=== PATIENT | male | born 1950 | race African-American/Black ===

== ENCOUNTER 2018-01-28 11:43 | Emergency (ER) | payer MEDICARE, OTHER ==
[~2018-01-28] VITALS: Ht 170.2 cm; Wt 74.8 kg
[2018-01-28 11:59] VITALS: BP 107/66
[2018-01-28] MEDS ORDERED: methylPREDNISolone SOD SUCC 125 MG/2 ML VL IM ONE (13:45)
[2018-01-28] MEDS ORDERED: KETOROLAC TROMETH 60MG/2ML VIAL IM ONE (13:45)
[2018-01-28] MEDS ORDERED: IPRATROPIUM BROM 0.5 MG/2.5ML INH SOL NEB ONE (13:45)
[2018-01-28] MEDS ORDERED: ALBUTEROL SULF 2.5 MG/0.5ML(0.5%) NEB SOLN NEB ONE (13:45)
== END 2018-01-28 14:31 | disposition home or self-care (01) ==
LOC: ER 11:43
DX: J45.901 Unspecified asthma with (acute) exacerbation (principal); M54.5 Low back pain; G89.29 Other chronic pain; E11.9 Type 2 diabetes mellitus without complications; I10 Essential (primary) hypertension; F17.210 Nicotine dependence, cigarettes, uncomplicated; Z86.73 Personal history of transient ischemic attack (TIA), and cerebral infarction without residual deficits
CPT/HCPCS: 71046; 81002; 93005; 94640; 96372; 99283; J1885; J2930; J7611; J7644

== ENCOUNTER 2018-10-04 16:40 | Emergency (ER) | payer OTHER ==
[~2018-10-04] VITALS: Ht 170.2 cm; Wt 73.5 kg
[2018-10-04 16:40] VITALS: BP 137/79
[2018-10-04] MEDS ORDERED: ASPirin 81 mg TAB PO ONE (17:15)
[2018-10-04 17:56] LABS: Basophils # (auto) 0 uL; Basophils % (auto) 0.5 % (0.0-2.0); Eosinophils # (auto) 0.2 uL; Eosinophils % (auto) 2.4 % (0.0-7.0); Hematocrit 39.8 % (41.0-53.0); Hemoglobin 13.2 g/dL (13.5-17.5); Lymphocytes # (auto) 0.7 uL; Lymphocytes % (auto) 7.4 % (10.0-50.0); Mean Corpuscular Hemoglobin 28.9 pg (28.0-32.0); Mean Corpuscular Hgb Conc. 33.2 g/dL (32.0-36.0); Monocytes # (auto) 0.5 uL; Neutrophils # (auto) 7.6 uL; Neutrophils % (auto) 83.7 % (37.0-80.0); Platelet Count (auto) 152 10^3/uL (140-450); Red Blood Cells 4.57 10^6/uL (4.5-5.90); Red Cell Distribution Width 15.6 % (11.8-14.3); White Blood Cell 9.1 10^3/uL (4.4-10.8)
[2018-10-04 18:14] LABS: Albumin 2.8 g/dL (3.4-5.0); Anion Gap 7 (5-15); Blood Urea Nitrogen 12 mg/dL (7-18); Carbon Dioxide 27 mmol/L (21-32); Chloride 106 mmol/L (98-107); Glucose 146 mg/dL (74-106); Magnesium 2.3 mg/dL (1.6-2.6); Potassium 3.3 mmol/L (3.5-5.1); Sodium 140 mmol/L (136-145)
[2018-10-04 18:18] LABS: Alanine Aminotransferase 12 U/L (16-61); Alkaline Phosphatase 70 U/L (45-117); Aspartate Aminotransferase 12 U/L (15-37); BUN/Creatinine Ratio 9.6; Bilirubin, Total 0.8 mg/dL (0.2-1.0); GFR African American 73 mL/min; GFR Non-African American 61 mL/min; Total Protein 6.1 g/dL (6.4-8.2)
[2018-10-04 18:20] LABS: INR 0.95 (0.9-1.15); Partial Thromboplastin Time 26.5 sec (23.64-32.05)
[2018-10-04] MEDS ORDERED: ACETAMINOPHEN 325 MG TAB PO ONE (19:15)
== END 2018-10-04 21:45 | disposition home or self-care (01) ==
LOC: EDBD 16:40 → ER 16:42
DX: R07.89 Other chest pain (principal); F41.9 Anxiety disorder, unspecified; J44.9 Chronic obstructive pulmonary disease, unspecified; E11.9 Type 2 diabetes mellitus without complications; K21.9 Gastro-esophageal reflux disease without esophagitis; I10 Essential (primary) hypertension; F17.210 Nicotine dependence, cigarettes, uncomplicated; Z86.73 Personal history of transient ischemic attack (TIA), and cerebral infarction without residual deficits
CPT/HCPCS: 36415; 71045; 80053; 83735; 83880; 84484; 85025; 85610; 85730; 93005; 94761

== ENCOUNTER 2020-01-09 17:40 | Emergency (ER) | payer OTHER, MEDICARE ==
[~2020-01-09] VITALS: Ht 170.2 cm; Wt 72.6 kg
[2020-01-09 19:31] LABS: Basophils # (auto) 0.1 10 ^3/uL (0-0.2); Eosinophils # (auto) 0.5 10 ^3/uL (0-0.8); Eosinophils % (auto) 5.6 % (0.0-7.0); Hematocrit 46.5 % (41.0-53.0); Hemoglobin 15.6 g/dL (13.5-17.5); Lymphocytes # (auto) 1.8 10 ^3/uL (0.4-5.4); Lymphocytes % (auto) 21.1 % (10.0-50.0); Mean Corpuscular Hemoglobin 29.4 pg (28.0-32.0); Mean Corpuscular Hgb Conc. 33.5 g/dL (32.0-36.0); Mean Corpuscular Volume 87.6 fL (80.0-100.0); Monocytes # (auto) 1.1 10 ^3/uL (0-1.3); Monocytes % (auto) 13.2 % (0.0-12.0); Neutrophils % (auto) 59.1 % (37.0-80.0); Nucleated Red Blood Cells % 0.1 %; Platelet Count (auto) 231 10^3/uL (140-450); Red Cell Distribution Width 14.5 % (11.8-14.3); White Blood Cell 8.5 10^3/uL (4.4-10.8)
[2020-01-09 19:33] VITALS: BP 166/76
[2020-01-09 19:46] LABS: Albumin 3.5 g/dL (3.4-5.0); Calcium 8.6 mg/dL (8.5-10.1); Potassium 3.3 mmol/L (3.5-5.1)
[2020-01-09 19:51] LABS: BUN/Creatinine Ratio 7.4; Bilirubin, Total 0.6 mg/dL (0.2-1.0); Total Protein 7.3 g/dL (6.4-8.2)
[2020-01-09 20:07] LABS: Urine Bacteria FEW /hpf (None Seen); Urine Blood Negative /uL (Negative); Urine Specific Gravity 1.009 (1.001-1.035); Urine WBC 161 /hpf (0 - 3)
[2020-01-09] MEDS ORDERED: POTASSIUM CHL 20 Meq TABLET PO ONE ×2 (20:15)
[2020-01-09] MEDS ORDERED: cefTRIAXone SOD 1,000 MG VL IM ONE (20:15)
[2020-01-09] MEDS ORDERED: LIDOCAINE 2% (LOCAL ANESTH.) PF 5ml SDV ONE (20:19)
== END 2020-01-09 20:40 | disposition home or self-care (01) ==
LOC: ER 17:40
DX: N39.0 Urinary tract infection, site not specified (principal); E87.6 Hypokalemia; K42.9 Umbilical hernia without obstruction or gangrene; I10 Essential (primary) hypertension; E11.9 Type 2 diabetes mellitus without complications; J44.9 Chronic obstructive pulmonary disease, unspecified; F17.210 Nicotine dependence, cigarettes, uncomplicated; Z86.73 Personal history of transient ischemic attack (TIA), and cerebral infarction without residual deficits
CPT/HCPCS: 36415; 74176; 80053; 81001; 83690; 85025; 96372; 99284; J0696; J2001

== ENCOUNTER 2024-09-13 17:00 | Inpatient (IN) | payer OTHER, MEDICARE ==
[~2024-09-13] VITALS: Ht 172.7 cm; Wt 75.7 kg
--- NOTE | 2024-09-13 17:23 | ECG ---
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
[2024-09-13 18:17] LABS: Hematocrit 43.8 % (41.0-53.0); Hemoglobin 15.6 g/dL (13.5-17.5); Mean Corpuscular Hemoglobin 31.3 pg (28.0-32.0); Mean Corpuscular Volume 88.0 fL (80.0-100.0); Nucleated Red Blood Cells % 0.2 %
[2024-09-13 18:31] LABS: Alanine Aminotransferase 12 U/L (7-40); Albumin 4.3 g/dL (3.2-4.8); Alkaline Phosphatase 80 U/L (46-116); Anion Gap 10 (5-15); BUN/Creatinine Ratio 8.1 (10.0-20.0); Bilirubin, Total 0.4 mg/dL (0.2-1.0); Blood Urea Nitrogen 11 mg/dL (9-23); Calcium 9.5 mg/dL (8.7-10.4); Carbon Dioxide 24 mmol/L (20-31); Potassium 4.1 mmol/L (3.5-5.1); Sodium 143 mmol/L (136-145); Total Protein 6.4 g/dL (5.7-8.2)
[2024-09-13 18:33] LABS: Chloride 109 mmol/L (98-107); Glucose 135 mg/dL (74-106)
--- NOTE | 2024-09-13 18:42 | DVH ---
CHEST RADIOGRAPH Indication: GENERAL WEAKNESS, SHORTNESSOF BREATH Technique: Single frontal view of the chest was obtained Comparison: None FINDINGS: Lines and Tubes: None Lungs: No focal consolidation. Pleura: No effusion. No pneumothorax. Cardiomediastinal contours: Unremarkable Bones: No acute osseous abnormality. IMPRESSION: 1. No acute cardiopulmonary disease.
--- NOTE | 2024-09-13 19:48 | ED.PDOC ---
HPI Comments 74-YEAR-OLD MALE BROUGHT IN BY , PATIENT HAS BEEN HAVING GENERALIZED WEAKNESS, STATES OVER THE LAST 2-3 WEEKS HE HAS BEEN HAVING INTERMITTENT SHORTNESS OF BREATH AND DIZZINESS. STATES THAT PATIENT WAS WEARING A H OLTER MONITOR. THEY RECENTLY TOOK IT OFF AND THEY CALLED IN TODAY WITH THE RESULTS AND ADVISED HIM THEN IN HIS COME INTO THE EMERGENCY ROOM FOR VT. STATES THAT PATIENT GETS EPISODES OF DIZZINESS AND WEAKNESS DAILY. PATIENT CURRENTLY DENIES ANY SYMPTOMS, DENIES ANY CHEST PAIN. Chief Complaint: General Weakness Time Seen by MD: 17:23 Reviewed Notes: Nurses Notes Allergies: Coded Allergies: NO KNOWN ALLERGIES (Unverified , 10/04/18) Information Source: Patient Mode of Arrival: Wheelchair Past Medical History PAST MEDICAL HISTORY: Cancer, COPD, CVA, DM, GERD, HTN, Seizures Surgical History: Denies all surgeries Family History Family History: Unknown Social History Smoker: Cigarettes Alcohol: Occasionally Drugs: Denies Drug Use Lives In: Home Constitutional: denies: chills, diaphoresis, fatigue, fever, malaise, sweats, weakness, others EENTM: denies: blurred vision, double vision, ear bleeding, ear discharge, ear drainage, ear pain, ear ringing, eye pain, eye redness, hearing loss, mouth pain, mouth swelling, nasal discharge, nose bleeding, nose congestion, nose pain, photophobia, tearing, throat pain, throat swelling, voice changes, others Respiratory: denies: cough, hemoptysis, orthopnea, SOB at rest, shortness of breath, SOB with excertion, stridor, wheezing, others Cardiovascular: denies: chest pain, dizzy spells, diaphoresis, Dyspnea on exertion, edema, irregular heart beat, left arm pain, lightheadedness, palpitations, PND, syncope, others Gastrointestinal: denies: abdomen distended, abdominal pain, blood streaked bowels, constipated, diarrhea, dysphagia, difficulty swallowing, hematemesis, melena, nausea, poor appetite, poor fluid intake, rectal bleeding, rectal pain, vomiting, others Genitourinary: denies: burning, dysuria, flank pain, frequency, hematuria, incontinence, penile discharge, penile sore, pain, testicle pain, testicle swelling, urgency, others Neurological: denies: dizziness, fainting, headache, left sided numbness, left sided weakness, numbness, paresthesia, pre-existing deficit, right sided numbness, right sided weakness, seizure, speech problems, tingling, tremors, weakness, others Musculoskeletal: denies: back pain, gout, joint pain, joint swelling, muscle pain, muscle stiffness, neck pain, others Integumetry: denies: bruises, change in color, change in hair/nails, dryness, laceration, lesions, lumps, rash, wounds, others Allergic/Immunocompromised: denies: Difficulty Healing, Frequent Infections, Hives, Itching, others Hematologic/Lymphatic: denies: anemia, blood clots, easy bleeding, easy bruising, swollen glands, others Endocrine: denies: excessive hunger, excessive sweating, excessive thirst, excessive urination, flushing, intolerance to cold, intolerance to heat, unexplained weight gain, unexplained weight loss, others Psychiatric: denies: anxiety, bipolar disorder, depression, hopeless, panic disorder, schizophrenia, sleepless, suicidal, others Physical Exam General Appearance: No Apparent Distress, Normal HEENT: Normal ENT Inspection, Pharynx Normal, TMs Normal Neck: Full Range of Motion, Non-Tender, Normal, Normal Inspection Respiratory: Chest Non-Tender, Lungs Clear, No Accessory Muscle Use, No Respiratory Distress, Normal Breath Sounds Cardiovascular: No Edema, No JVD, No Murmur, No Gallop, Normal Peripheral Pulses, Regular Rate/Rhythm Breast Exam: Deferred Gastrointestinal: No Organomegaly, Non Tender, No Pulsatile Mass, Normal Bowel Sounds, Soft Genitalia: Deferred Pelvic: Deferred Rectal: Deferred Extremities: No calf tenderness, Normal capillary refill, Normal inspection, Normal range of motion, Non-tender, No pedal edema Musculoskeletal : Apperance: Normal Neurologic: Alert, Normal Affect, NOT DONE Cerebellar Function: Normal Reflexes: NOT DONE Skin: Dry, Normal Color, Warm Lymphatic: No Adenopathy Was a procedure done? Was a procedure done?: No CP Differential Dx Differential Diagnosis: AV Block 3rd Degree, Ventricular Dysrhythmia, V-Fib, V- Tach X-Ray, Labs, Meds, VS Vital Signs Date Time Temp Pulse Resp B/P (MAP) Pulse Ox O2 Delivery O2 Flow Rate FiO2 09/13/24 17:22 98.7 56 15 128/69 (88) 99 98.7 09/13/24 17:20 100 Lab Test 09/13/24 19:18 7/23/25 17:55 09/13/24 17:15 Range/Units Troponin I High Sensitivity Pending 18 </=54 ng/L White Blood Count 6.4 4.4-10.8 10^3/uL Red Blood Count 4.98 4.5-5.90 10^6/uL Hemoglobin 15.6 13.5-17.5 g/dL Hematocrit 43.8 41.0-53.0 % Mean Corpuscular Volume 88.0 80.0-100.0 fL Mean Corpuscular Hemoglobin 31.3 28.0-32.0 pg Mean Corpuscular Hemoglobin Concent 35.6 32.0-36.0 g/dL Red Cell Distribution Width 13.2 11.8-14.3 % Platelet Count 234 140-450 10^3/uL Mean Platelet Volume 7.9 6.9-10.8 fL Neutrophils (%) (Auto) 52.5 37.0-80.0 % Lymphocytes (%) (Auto) 31.7 10.0-50.0 % Monocytes (%) (Auto) 11.3 0.0-12.0 % Eosinophils (%) (Auto) 3.8 0.0-7.0 % Basophils (%) (Auto) 0.7 0.0-2.0 % Neutrophils # (Auto) 3.4 1.6-8.6 10 ^3/uL Lymphocytes # (Auto) 2.0 0.4-5.4 10 ^3/uL Monocytes # (Auto) 0.7 0-1.3 10 ^3/uL Eosinophils # (Auto) 0.2 0-0.8 10 ^3/uL Basophils # (Auto) 0 0-0.2 10 ^3/uL Nucleated Red Blood Cells 0.2 % Sodium Level 143 136-145 mmol/L Potassium Level 4.1 3.5-5.1 mmol/L Chloride Level 109 H 98-107 mmol/L Carbon Dioxide Level 24 20-31 mmol/L Anion Gap 10 5-15 Blood Urea Nitrogen 11 9-23 mg/dL Creatinine 1.35 H 0.700-1.30 mg/dL Glomerular Filtration Rate Calc 54 >90 mL/min BUN/Creatinine Ratio 8.1 L 10.0-20.0 Serum Glucose 135 H 74-106 mg/dL Calcium Level 9.5 8.7-10.4 mg/dL Total Bilirubin 0.4 0.2-1.0 mg/dL Aspartate Amino Transferase (AST) 13 13-40 U/L Alanine Aminotransferase (ALT) 12 7-40 U/L Alkaline Phosphatase 80 46-116 U/L Total Protein 6.4 5.7-8.2 g/dL Albumin 4.3 3.2-4.8 g/dL POC Glucose 151 H 70-106 mg/dl X-Ray, Labs, Meds, VS Comment PATIENT WILL BE ADMITTED FOR EPISODES OF V-TACH, PATIENT SHOWS PVCS ON EKG, RECOMMEND CARDIOLOGY CONSULT IN THE MORNING PATIENT HAS SYMPTOMATIC HAVING DAILY EPISODES. Time of 1ST Reevaluation: 19:47 Reevaluation 1ST: Unchanged Patient Education/Counseling: Diagnosis, Treatment, Need For Follow Up Family Education/Counseling: Diagnosis, Treatment, No Family Present SEPSIS Sepsis Screen Date sepsis recognized/suspect: Sep 13, 2024 Time Sepsis recognized/suspect: 1721 Recent Procedure: No On Antibiotic Therapy: No Respiratory Rate >20: No Heart Rate >90: No Temp<36 C (96.8 F) or >38.3 C: No SBP <90 or MAP <65 mmHG: No New Acute Mental Status Change: No Is the patient on CPAP, BIPAP,: No Physician Orders Chest Xray 1 View (09/13/24 17:41) Troponin-I Hs (09/13/24 18:41) Troponin-I Hs (09/13/24 20:41) Vital Signs Date Time Temp Pulse Resp B/P (MAP) Pulse Ox O2 Delivery O2 Flow Rate FiO2 09/13/24 17:22 98.7 56 15 128/69 (88) 99 98.7 09/13/24 17:20 100 Laboratory Tests Test 09/13/24 17:55 White Blood Count 6.4 10^3/uL (4.4-10.8) Departure 1 Departure Time of Disposition: 19:46 Impression: Primary Impression: PVCs (premature ventricular contractions) Additional Impression: Generalized weakness Disposition: 09 ADMITTED INPATIENT Condition: Fair Discharged With: Self Critical Care Note Critical Care Time?: No Stability Stability form required: No Heart Score Heart Score: Heart Score Response (Comments) Value History Moderate Suspicious 1 EKG Normal 0 Age >65 2 Risk Factors >3 or Hx ASHD 2 Troponin Normal limit 0 Total 5 LYNN WEBB Sep 13, 2024 19:48
[2024-09-13] MEDS ORDERED: MORPHINE SULFATE INJ 2 MG/ml SYRG IV PRN (21:00)
[2024-09-13] MEDS ORDERED: NITROGLYCERIN 0.4 MG SL TAB SL PRN (21:00)
[2024-09-13] MEDS ORDERED: ACETAMINOPHEN 325 MG TAB PO PRN (21:00)
[2024-09-13] MEDS ORDERED: ONDANSETRON HCL 4 MG/2 ML VIAL IV PRN (21:00)
[2024-09-13 21:57] VITALS: PULSE 70; RESP 14; O2SAT 99
[2024-09-13] MEDS: ATORVASTATIN 20 MG TAB PO SCH (22:46)
[2024-09-13 22:49] VITALS: PULSE 51; RESP 17; O2SAT 100
[2024-09-13] MEDS ORDERED: ALBUTEROL SULF 2.5 MG/0.5ML(0.5%) NEB SOLN NEB PRN (23:00)
[2024-09-13 23:03] VITALS: BP 128/69; PULSE 70; RESP 18; TEMP 98.6; O2SAT 100
--- NOTE | 2024-09-13 23:07 | DVHHP2 ---
History of Present Illness Reason for Visit: Irregular heart rhythm History of Present Illness 74-year-old male presents for evaluation of irregular heart rhythm. 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 He states receiving a call from his doctor's office to present to the emergency department for further evaluation of cardiac arrhythmia. Patient reports a two week history of generalized weakness with shortness for breath and dizziness. Denies chest pain or palpitations. Past Medical History CVA, diabetes mellitus, COPD, , hypertension Past Surgical History Denies Family History Noncontributory Smoke: <1 pack per day ALCOHOL: occassional Drugs: None Lives: with Family Review of Systems Review of Systems Review of systems are currently negative otherwise addressed in HPI. Allergies: Coded Allergies: NO KNOWN ALLERGIES (Unverified , 10/04/18) Medications Current Medications Medications Dose Ordered Sig/Marga Route Start Time Stop Time Status Last Admin Dose Admin Aspirin 81 mg DAILY PO 09/14/24 10:00 Atorvastatin Calcium 10 mg HS PO 09/13/24 22:00 09/13/24 22:46 10 MG Ondansetron HCl 4 mg Q4HP PRN IV 09/13/24 21:00 Acetaminophen 650 mg Q6HP PRN PO 09/13/24 21:00 Nitroglycerin 0.4 mg Q5MINP PRN SL 09/13/24 21:00 Morphine Sulfate 2 mg Q30M PRN IV 09/13/24 21:00 Exam Vital Signs Vital Signs Date Time Temp Pulse Resp B/P (MAP) Pulse Ox O2 Delivery O2 Flow Rate FiO2 09/13/24 21:57 70 14 99 Room Air* 0 21 09/13/24 21:03 98.6 128/69 (88) 98.6 Exam Gen: 74-year-old male in mild distress Skin: Warm, dry, normal color and texture, no rash. HEENT: Normocephalic atraumatic, mucous membranes moist and pink. Neck: Cervical and supraclavicular nodes normal without enlargement, trachea is midline, thyroid gland is normal without masses. Pulmonary: Clear to auscultation and percussion bilaterally. Cardiac: Regular rate and rhythm. No murmur Abdomen: Soft, nontender, nondistended, bowel sounds present all 4 quadrants, no guarding, no rigidity, no organomegaly. Extremities: No cyanosis, clubbing, no edema Neuro: Cranial nerves II through XII grossly intact, normal affect and speech, no focal motor deficits. Labs/Xrays ORDERING PHYSICIAN: LYNN WEBB PROCEDURE(s): CXR1 - CHEST XRAY 1 VIEW REASON: GENERAL WEAKNESS, SHORTNESSOF BREATH ORDER NUMBER(s): [id number], ACCESSION NUMBER(s): [id number] CHEST RADIOGRAPH Indication: GENERAL WEAKNESS, SHORTNESSOF BREATH Technique: Single frontal view of the chest was obtained Comparison: None FINDINGS: Lines and Tubes: None Lungs: No focal consolidation. Pleura: No effusion. No pneumothorax. Cardiomediastinal contours: Unremarkable Bones: No acute osseous abnormality. IMPRESSION: 1. No acute cardiopulmonary disease. Labs Test 09/13/24 19:18 09/13/24 17:55 09/13/24 17:15 Range/Units Troponin I High Sensitivity 22 </=54 ng/L White Blood Count 6.4 4.4-10.8 10^3/uL Red Blood Count 4.98 4.5-5.90 10^6/uL Hemoglobin 15.6 13.5-17.5 g/dL Hematocrit 43.8 41.0-53.0 % Mean Corpuscular Volume 88.0 80.0-100.0 fL Mean Corpuscular Hemoglobin 31.3 28.0-32.0 pg Mean Corpuscular Hemoglobin Concent 35.6 32.0-36.0 g/dL Red Cell Distribution Width 13.2 11.8-14.3 % Platelet Count 234 140-450 10^3/uL Mean Platelet Volume 7.9 6.9-10.8 fL Neutrophils (%) (Auto) 52.5 37.0-80.0 % Lymphocytes (%) (Auto) 31.7 10.0-50.0 % Monocytes (%) (Auto) 11.3 0.0-12.0 % Eosinophils (%) (Auto) 3.8 0.0-7.0 % Basophils (%) (Auto) 0.7 0.0-2.0 % Neutrophils # (Auto) 3.4 1.6-8.6 10 ^3/uL Lymphocytes # (Auto) 2.0 0.4-5.4 10 ^3/uL Monocytes # (Auto) 0.7 0-1.3 10 ^3/uL Eosinophils # (Auto) 0.2 0-0.8 10 ^3/uL Basophils # (Auto) 0 0-0.2 10 ^3/uL Nucleated Red Blood Cells 0.2 % Sodium Level 143 136-145 mmol/L Potassium Level 4.1 3.5-5.1 mmol/L Chloride Level 109 H 98-107 mmol/L Carbon Dioxide Level 24 20-31 mmol/L Anion Gap 10 5-15 Blood Urea Nitrogen 11 9-23 mg/dL Creatinine 1.35 H 0.700-1.30 mg/dL Glomerular Filtration Rate Calc 54 >90 mL/min BUN/Creatinine Ratio 8.1 L 10.0-20.0 Serum Glucose 135 H 74-106 mg/dL Calcium Level 9.5 8.7-10.4 mg/dL Total Bilirubin 0.4 0.2-1.0 mg/dL Aspartate Amino Transferase (AST) 13 13-40 U/L Alanine Aminotransferase (ALT) 12 7-40 U/L Alkaline Phosphatase 80 46-116 U/L Total Protein 6.4 5.7-8.2 g/dL Albumin 4.3 3.2-4.8 g/dL POC Glucose 151 H 70-106 mg/dl SEPSIS Sepsis Screen Date sepsis recognized/suspect: Sep 13, 2024 Time Sepsis recognized/suspect: 2154 Recent Procedure: No On Antibiotic Therapy: No Respiratory Rate >20: No Heart Rate >90: No Temp<36 C (96.8 F) or >38.3 C: No SBP <90 or MAP <65 mmHG: No New Acute Mental Status Change: No Is the patient on CPAP, BIPAP,: No Physician Orders Chest Xray 1 View (09/13/24 17:41) * Cardiology Consult (09/13/24 20:53) Aspirin Tablet (09/14/24 10:00) Atorvastatin (Lipitor) (09/13/24 22:00) Basic Metabolic Panel (09/14/24 04:00) Admit (09/13/24 20:53) Ondansetron Hcl (Zofran) (09/13/24 21:00) Cardiac Diet-2gna,Lofat,Lochol (09/14/24 Breakfast) Echo 2d Mode Cardiac Dop (09/13/24 20:53) Condition: Fair (09/13/24 20:53) Acetaminophen Tablet (Tylenol Tablet) (09/13/24 21:00) Bedrest With Bathroom Privileg (09/13/24 20:53) Nitroglycerin Sublingual (Ntrostat Subli (09/13/24 21:00) Morphine Sulfate Injection (09/13/24 21:00) Stat Ekg For Chest Pain (09/13/24 20:53) Notify Md Of Changes From Base (09/13/24 20:53) Veneer Gluer For 24 Hours (09/13/24 20:53) Emergency Dysrhythmia Protocol (09/13/24 20:53) Rhythm Strips Once Every Shift (09/13/24 20:53) Oxygen By Nasal Cannula (09/13/24 20:53) Gabapentin Capsule (Neurontin Capsule) (09/14/24 10:00) Tamsulosin Hydrochloride (Flomax) (09/14/24 18:00) Metoprolol Xl Succinate (Toprol Xl) (09/14/24 10:00) Albuterol Medneb (Ventolin Medneb) (09/13/24 23:00) Amlodipine Tablet (Norvasc Tablet) (09/14/24 10:00) Atorvastatin (Lipitor) (09/14/24 22:00) Losartan Tablet (Cozaar Tablet) (09/14/24 10:00) Vital Signs Date Time Temp Pulse Resp B/P (MAP) Pulse Ox O2 Delivery O2 Flow Rate FiO2 09/13/24 21:57 70 14 99 Room Air* 0 21 09/13/24 21:03 98.6 53 16 128/69 (88) 99 98.6 09/13/24 17:22 98.7 56 15 128/69 (88) 99 98.7 09/13/24 17:20 100 Laboratory Tests Test 09/13/24 17:55 White Blood Count 6.4 10^3/uL (4.4-10.8) Medications Medications Dose Ordered Sig/Marga Route Start Time Stop Time Status Last Admin Dose Admin Atorvastatin Calcium 10 mg HS PO 09/13/24 22:00 09/13/24 22:46 10 MG Assessment/Plan Assessment/Plan Assessment Cardiac arrhythmia Diabetes mellitus Hypertension Chronic kidney disease Plan Admit the patient to telemetry to the hospitalist Cardiology consultation Echocardiogram pending Resume home medications Continue treatment per orders. Plan discussed with: Patient My Orders Orders - BRIAN WEN Procedure Category Date Status Time * Cardiology Consult CONS 09/13/24 Transmitted 20:53 Aspirin Tablet PHA 09/14/24 In Process 10:00 Atorvastatin (Lipitor) PHA 09/13/24 In Process 22:00 Basic Metabolic Panel LAB 09/14/24 Verified 04:00 Admit ADMIT 09/13/24 Transmitted 20:53 Ondansetron Hcl PHA 09/13/24 In Process (Zofran) 21:00 Cardiac DIET 09/14/24 Transmitted Diet-2gna,Lofat,Lochol Breakfast Echo 2d Mode Cardiac US 09/13/24 Logged DOP 20:53 Condition: Fair MACI 09/13/24 In Process 20:53 Acetaminophen Tablet PHA 09/13/24 In Process (Tylenol Tablet) 21:00 Bedrest With Bathroom MACI 09/13/24 In Process Privileg 20:53 Nitroglycerin PHA 09/13/24 In Process Sublingual (Ntrostat 21:00 Morphine Sulfate PHA 09/13/24 In Process Injection 21:00 Stat Ekg For Chest MACI 09/13/24 In Process Pain 20:53 Notify Md Of Changes [facility] 09/13/24 In Process From Base 20:53 Veneer Gluer For [facility] 09/13/24 In Process 24 Hours 20:53 Emergency Dysrhythmia [facility] 09/13/24 In Process Protocol 20:53 Rhythm Strips Once [facility] 09/13/24 In Process Every Shift 20:53 Oxygen By Nasal RT 09/13/24 Transmitted Cannula 20:53 Gabapentin Capsule PHA 09/14/24 Transmitted (Neurontin Capsule) 10:00 Tamsulosin PHA 09/14/24 Transmitted Hydrochloride (Flomax) 18:00 Metoprolol Xl PHA 09/14/24 Transmitted Succinate (Toprol Xl) 10:00 Albuterol Medneb PHA 09/13/24 Transmitted (Ventolin Medneb) 23:00 Amlodipine Tablet PHA 09/14/24 Transmitted (Norvasc Tablet) 10:00 Atorvastatin (Lipitor) PHA 09/14/24 Transmitted 22:00 Losartan Tablet PHA 09/14/24 Transmitted (Cozaar Tablet) 10:00 Date of Service: Sep 13, 2024 Billing Provider: WEN,CARYN AGACNP Common Visit Codes: [id number] INP/OBS CARE (HIGH) BRIAN WEN [facility] Sep 13, 2024 23:07
[2024-09-13] MEDS ORDERED: MEGE20TA3 PO (23:39)
[2024-09-13] MEDS ORDERED: MULT-1018 PO (23:39)
[2024-09-13] MEDS ORDERED: ASPI-717 PO (23:39)
[2024-09-13] MEDS ORDERED: TRAZ-184 PO (23:39)
[2024-09-13] MEDS ORDERED: ATOR20TA50 PO (23:39)
[2024-09-13] MEDS ORDERED: LATA0.008 EACHEYE (23:39)
[2024-09-13] MEDS ORDERED: TIMO0.2524 EACHEYE (23:39)
[2024-09-13] MEDS ORDERED: GABA-1308 PO (23:39)
[2024-09-13] MEDS ORDERED: METO-289 PO (23:39)
[2024-09-13] MEDS ORDERED: DIAZ10TA3 PO (23:39)
[2024-09-13] MEDS ORDERED: CHOL100046 PO (23:39)
[2024-09-13] MEDS ORDERED: METF-370 PO (23:39)
[2024-09-13] MEDS ORDERED: AMLO1TAB23 PO (23:39)
[2024-09-13] MEDS ORDERED: IPRA0.00 IN (23:39)
[2024-09-13] MEDS ORDERED: LOSA-534 PO (23:39)
[2024-09-13] MEDS ORDERED: DORZ2SOL17 EACHEYE (23:39)
[2024-09-13] MEDS ORDERED: BUSP15TA60 PO (23:39)
[2024-09-13] MEDS ORDERED: CLON0.1T PO (23:39)
[2024-09-13] MEDS ORDERED: MONT-8 PO (23:39)
[2024-09-13] MEDS ORDERED: BRIM0.2S17 EACHEYE (23:39)
[2024-09-13 23:59] LABS: Cholesterol 100 mg/dL (< 200)
[2024-09-14] VITALS (7 sets, daily range): BP systolic 117–149; BP diastolic 83–97; PULSE 60–72; RESP 16–18; TEMP 98.1–98.6; O2SAT 98–100
[2024-09-14 00:03] LABS: HDL Cholesterol 33 mg/dL (40-59); Triglycerides 198 mg/dL (< 150)
[2024-09-14 07:13] LABS: Potassium 4.0 mmol/L (3.5-5.1); Sodium 142 mmol/L (136-145)
[2024-09-14 07:14] LABS: Anion Gap 9 (5-15); Calcium 10.0 mg/dL (8.7-10.4); Carbon Dioxide 24 mmol/L (20-31)
[2024-09-14 07:15] LABS: Chloride 109 mmol/L (98-107)
[2024-09-14 07:19] LABS: BUN/Creatinine Ratio 8.1 (10.0-20.0)
[2024-09-14 07:21] LABS: Blood Urea Nitrogen 9 mg/dL (9-23); Glucose 116 mg/dL (74-106)
[2024-09-14] MEDS: GABAPENTIN 100 MG CAP PO SCH (10:15)
[2024-09-14] MEDS: LOSARTAN POTASSIUM 25 MG TAB PO SCH (10:16)
[2024-09-14] MEDS: METOPROLOL SUCCINATE XL 50 MG TAB PO SCH (10:17)
--- NOTE | 2024-09-14 10:44 | DVHCONRES ---
Date Seen: Sep 14, 2024 Resident Creating Document: QASIM ENRIQUE RESDIENT History of Present Illness This is a 74-year-old male past medical history of COPD, CVA (2 times), hypertension and dyslipidemia referred to the hospital due to abnormal finding on Holter monitoring. Per patient, he has shortness of bed and lightheadedness since 5 months, upon visiting primary doctor he was prescribed Holter monitoring (at [facility]). Yesterday, he was contacted by his doctor, and was informed of V-tach on Holter monitoring which prompted this visit. He also reports of recurrent fall (around 5 times) within last 6 months. Currently he denies chest pain, cough, fever. Patient seen and examined at bedside. Patient is currently feeling better since admission, does not have any complaint. Family History: Hypertension Allergies: Coded Allergies: NO KNOWN ALLERGIES (Unverified , 10/04/18) Home Meds Reported Medications Trazodone HCl (Trazodone Hydrocloride) 100 Mg Tab, 100 MG PO HSPRN PRN for FOR INSOMNIA, TAB 09/13/24 Timolol Maleate (Timolol Maleate) 0.25 % Karlos, 1 DROP EACHEYE QAM 09/13/24 Multiple Vitamin (Multivitamins) Tab, 1 TAB PO DAILY, TAB 09/13/24 Montelukast Sodium (MONTELUKAST SODIUM) 10 Mg Tab, 10 MG PO QPM, TAB 09/13/24 Metoprolol Succinate (Metoprolol Succinate Er) 50 Mg Tab, 50 MG PO DAILY, TAB 09/13/24 Metformin Hydrochloride (Metformin Hcl) 500 Mg Tab, 500 MG PO DAILY, TAB 09/13/24 Megestrol Acetate (Megace) 20 Mg Tb, 40 MG PO Q6HP PRN for LOSS OF APPETITE, TAB 09/13/24 Losartan Potassium (Losartan Potassium) 50 Mg Tab, 50 MG PO DAILY, TAB 09/13/24 Latanoprost (LATANOPROST) 0.005 % Karlos, 1 DROP EACHEYE QPM 09/13/24 Gabapentin (Gabapentin) 100 Mg Cap, 400 MG PO HS, CAP 09/13/24 Dorzolamide Hcl (Dorzolamide Hcl) 2 % Karlos, 1 DROP EACHEYE BID 09/13/24 Diazepam (Diazepam) 10 Mg Tab, 5 MG PO DAILY PRN for SEVERE ANXOR PANIC ATTACKS, TAB 09/13/24 Clonidine Hydrochloride (Clonidine Hcl) 0.1 Mg Tab, 0.1 MG PO BID PRN for SBP >179 OR DBP >109, TAB 09/13/24 Cholecalciferol (KP VITAMIN D) 1,000 Unit Cap, 1000 UNIT PO DAILY, CAP 09/13/24 Buspirone Hcl (Buspirone Hcl) 15 Mg Tab, 15 MG PO QAM, TAB 09/13/24 Brimonidine Tartrate (Brimonidine Tartrate) 0.2 % Karlos, 1 DROP EACHEYE BID 09/13/24 Atorvastatin Calcium (ATORVASTATIN CALCIUM) 20 Mg Tab, 20 MG PO HS, TAB 09/13/24 Aspirin Buffered (Davidson Carb-Mag (Aspirin 325 mg) 1 Tab Tab, 1 TAB PO DAILY, TAB 09/13/24 Amlodipine Besylate (Amlodipine Besylate) 10 Mg Tab, 10 MG PO HS, TAB 09/13/24 Ipratropium-Albuterol (Ipratropium Richardson/Albut) 1 Karlos Karlos, 1 KARLOS IN QID for COPD, ML 09/13/24 Current Medications Current Medications Medications (Trade) Dose Ordered Sig/Marga Route PRN Reason Start Time Stop Time Status Last Admin Aspirin 81 mg DAILY PO 09/14/24 10:00 09/14/24 10:15 Atorvastatin Calcium (Lipitor) 10 mg HS PO 09/13/24 22:00 09/13/24 22:46 Ondansetron HCl (Zofran) 4 mg Q4HP PRN IV NAUSEA / VOMITING 09/13/24 21:00 Acetaminophen (Tylenol Tablet) 650 mg Q6HP PRN PO PAIN SCALE 1-3 OR TEMP>100.4 09/13/24 21:00 Nitroglycerin (Ntrostat Sublingual) 0.4 mg Q5MINP PRN SL FOR CHEST PAIN 09/13/24 21:00 Morphine Sulfate 2 mg Q30M PRN IV FOR CHEST PAIN 09/13/24 21:00 Gabapentin (Neurontin Capsule) 200 mg BID PO 09/14/24 10:00 09/14/24 10:15 Tamsulosin HCl (Flomax) 0.4 mg QPM PO 09/14/24 18:00 Metoprolol Succinate (Toprol Xl) 25 mg DAILY PO 09/14/24 10:00 09/14/24 10:17 Albuterol (Ventolin Medneb) 2.5 mg Q6HPRN PRN NEB SHORTNESS OF BREATH 09/13/24 23:00 Amlodipine Besylate (Norvasc Tablet) 5 mg DAILY PO 09/14/24 10:00 09/14/24 10:17 Atorvastatin Calcium (Lipitor) 20 mg HS PO 09/14/24 22:00 Losartan Potassium (Cozaar Tablet) 12.5 mg DAILY PO 09/14/24 10:00 09/14/24 10:16 Vital Signs Vital Signs Date Time Temp Pulse Resp B/P (MAP) Pulse Ox O2 Delivery O2 Flow Rate FiO2 09/14/24 10:17 132/96 09/14/24 10:17 72 09/14/24 08:00 18 100 Room Air* 0 21 09/14/24 05:13 98.5 98.5 Physical Exam General Appearance: Alert, Oriented X3, Cooperative, No acute distress HEENT: Atraumatic, PERRLA, EOMI, Mucous membrane moist/pink Respiratory: Clear to auscultation, Normal air movement Cardiovascular: Regular rate, Normal S1, Normal S2, No murmurs, no chest wall tenderness Abdominal: Normal bowel sounds, Soft, No tenderness, No hepatospenomegaly, No masses Extremities: No clubbing, No cyanosis, No edema, Normal pulses, No t enderness/swelling Skin: No rashes, No breakdown, No significant lesion Neuro: Normal gait, Normal speech, Strength at 5/5 X4 ext, Normal tone, Sensation intact, Cranial nerves 3-12 NL, Reflexes 2+ Psych/Mental Status: Mental status NL, Mood NL Labs/Diagnostic Data Labs Test 09/14/24 08:35 09/14/24 06:19 09/13/24 19:18 09/13/24 17:55 Range/Units Urine Opiates Screen Neg NEGATIVE Urine Fentanyl Screen Neg NEGATIVE Urine Barbiturates Screen Neg NEGATIVE Urine Phencyclidine Screen Neg NEGATIVE Urine Amphetamines Screen Pos NEGATIVE Urine Benzodiazepines Screen Neg NEGATIVE Urine Cocaine Screen Neg NEGATIVE Urine Cannabinoids Screen Neg NEGATIVE Sodium Level 142 136-145 mmol/L Potassium Level 4.0 3.5-5.1 mmol/L Chloride Level 109 H 98-107 mmol/L Carbon Dioxide Level 24 20-31 mmol/L Anion Gap 9 5-15 Blood Urea Nitrogen 9 9-23 mg/dL Creatinine 1.11 0.700-1.30 mg/dL Glomerular Filtration Rate Calc 69 >90 mL/min BUN/Creatinine Ratio 8.1 L 10.0-20.0 Serum Glucose 116 H 74-106 mg/dL Calcium Level 10.0 8.7-10.4 mg/dL Magnesium Level 1.9 1.6-2.6 mg/dL B-Type Natriuretic Peptide 309.94 0-100 pg/mL Troponin I High Sensitivity 22 </=54 ng/L White Blood Count 6.4 4.4-10.8 10^3/uL Red Blood Count 4.98 4.5-5.90 10^6/uL Hemoglobin 15.6 13.5-17.5 g/dL Hematocrit 43.8 41.0-53.0 % Mean Corpuscular Volume 88.0 80.0-100.0 fL Mean Corpuscular Hemoglobin 31.3 28.0-32.0 pg Mean Corpuscular Hemoglobin Concent 35.6 32.0-36.0 g/dL Red Cell Distribution Width 13.2 11.8-14.3 % Platelet Count 234 140-450 10^3/uL Mean Platelet Volume 7.9 6.9-10.8 fL Neutrophils (%) (Auto) 52.5 37.0-80.0 % Lymphocytes (%) (Auto) 31.7 10.0-50.0 % Monocytes (%) (Auto) 11.3 0.0-12.0 % Eosinophils (%) (Auto) 3.8 0.0-7.0 % Basophils (%) (Auto) 0.7 0.0-2.0 % Neutrophils # (Auto) 3.4 1.6-8.6 10 ^3/uL Lymphocytes # (Auto) 2.0 0.4-5.4 10 ^3/uL Monocytes # (Auto) 0.7 0-1.3 10 ^3/uL Eosinophils # (Auto) 0.2 0-0.8 10 ^3/uL Basophils # (Auto) 0 0-0.2 10 ^3/uL Nucleated Red Blood Cells 0.2 % Total Bilirubin 0.4 0.2-1.0 mg/dL Aspartate Amino Transferase (AST) 13 13-40 U/L Alanine Aminotransferase (ALT) 12 7-40 U/L Alkaline Phosphatase 80 46-116 U/L Total Protein 6.4 5.7-8.2 g/dL Albumin 4.3 3.2-4.8 g/dL Triglycerides Level 198 H < 150 mg/dL Cholesterol Level 100 < 200 mg/dL LDL Cholesterol 43 < 100 mg/dL HDL Cholesterol 33 L 40-59 mg/dL Thyroid Stimulating Hormone (TSH) 1.80 0.55-4.78 uIU/mL Test 09/13/24 17:15 Range/Units POC Glucose 151 H 70-106 mg/dl Assessment Lightheadedness, likely due to ventricular tachycardia Nonsustained ventricular tachycardia Hypertension History of CVA COPD Dyslipidemia * EKGs shows bigeminal PVCs * Telemetry showed multiple episodes of nonsustained ventricular tachycardia * Echo shows dilated cardiomyopathy with EF 25% * BNP and trop I is within normal limit Plan/recommendation (Dr. Garrido) * Patient is planned for left heart catheterization for tomorrow morning * Continue home meds * Keep on telemetry * Rest of plan per primary team * We Follow up with the patient Thank you for giving us the opportunity to take care of your patient. Please call back UTI on occasion/concerns. Plan discussed with: Patient, Other (RN) QASIM ENRIQUE Sep 14, 2024 10:44
--- NOTE | 2024-09-14 13:58 | DVHPNRES ---
Progress Note Date Seen: Sep 14, 2024 Resident Creating Document: ANU SPEARS RESIDENT Medical Necessity Reason Pt with a Central, PICC or Fol: No Subjective Review of Systems The patient with Holter monitor presented to the ED yesterday for shortness of breath and lightheadedness. He reports improvement in his symptoms. He denies any other complaints today. Review of the systems: The patient was seen and examined at the bedside. His shortness of breathe and lightheadedness improved since yesterday. No new complaints reported. Rest of the ROS is negative. 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 Smoking history: The patient has been smoking since age 12 half a pack per day. Alcohol: Occasionally, last drink was 2 days ago, 2 beers Drug abuse: Active marijuana use Cocaine use in the recent past. He lives with family. Home medications: Albuterol Objective vital signs Vital Sign Date Time Temp Pulse Resp B/P (MAP) Pulse Ox O2 Delivery O2 Flow Rate FiO2 09/14/24 10:17 132/96 09/14/24 10:17 72 09/14/24 09:00 98.2 18 100 98.2 09/14/24 08:00 Room Air* 0 21 Total Intake and Output 09/13/24 09/13/24 09/14/24 15:00 23:00 07:00 Intake Total 100 ml Output Total 575 ml Balance -475 ml medications Current Medications Medications Dose Ordered Sig/Marga Route Start Time Stop Time Status Last Admin Dose Admin Aspirin 81 mg DAILY PO 09/14/24 10:00 09/14/24 10:15 81 MG Atorvastatin Calcium 10 mg HS PO 09/13/24 22:00 09/13/24 22:46 10 MG Ondansetron HCl 4 mg Q4HP PRN IV 09/13/24 21:00 Acetaminophen 650 mg Q6HP PRN PO 09/13/24 21:00 Nitroglycerin 0.4 mg Q5MINP PRN SL 09/13/24 21:00 Morphine Sulfate 2 mg Q30M PRN IV 09/13/24 21:00 Gabapentin 200 mg BID PO 09/14/24 10:00 09/14/24 10:15 200 MG Tamsulosin HCl 0.4 mg QPM PO 09/14/24 18:00 Metoprolol Succinate 25 mg DAILY PO 09/14/24 10:00 09/14/24 10:17 25 MG Albuterol 2.5 mg Q6HPRN PRN NEB 09/13/24 23:00 Amlodipine Besylate 5 mg DAILY PO 09/14/24 10:00 09/14/24 10:17 5 MG Atorvastatin Calcium 20 mg HS PO 09/14/24 22:00 Losartan Potassium 12.5 mg DAILY PO 09/14/24 10:00 09/14/24 10:16 12.5 MG Examination Pt is lying on bed General Appearance: Dysarthria, mouth deviated towards the left side, Alert, Oriented X3, Cooperative, Mild distress HEENT: Atraumatic, Mucous membranes moist/pink. Left eye vision loss. Respiratory: Clear to auscultation, Normal air movement, No added sounds Cardiovascular: Regular rate, Normal S1, Normal S2, No murmurs Abdominal/ : Active bowel sounds, Soft, no distention, no tenderness Extremities: No edema, Normal pulses, No tenderness/swelling Skin: No Significant rash, except past surgical scars Neuro: Normal speech, sensorimotor deficits none, normal motor strength in upper and lower extremities. Psych/Mental Status: Mental status NL, Mood NL Nurse was there as epidemiology investigator during examination laboratory and microbiology Laboratory Tests 09/14/24 06:19 09/13/24 17:55 Test 09/14/24 06:19 Range/Units Serum Glucose 116 H 74-106 mg/dL Labs and/or images reviewed: Labs reviewed by me, Image(s) reviewed by me Problem List/Assessment/Plan Problem List/Assessment/Plan Symptomatic PVC Rule out bradyarrhythmia tachyarrhythmia syndrome -telemetry monitoring -morphine -nitroglycerin -metoprolol -cardiology consult done today. -nonsustained V-tach according to telemetry, cardiac stress test tomorrow(09/15/2024). Hyperlipidemia Atorvastatin BPH Tamsulosin Hypertension Losartan GI prophylaxis: Not indicated DVT prophylaxis: SCD Diet: Cardiac Goals of care discussed with the patient for more than 27 minutes: Full code status Case discussed with , patient and RN Plan discussed with: Patient, Other (RN) My Orders My Orders Orders - ANU SPEARS Procedure Category Date Status Time Drug Screen LAB 09/14/24 Logged 13:51 Date of Service: Sep 14, 2024 Billing Provider: LEIGH VILLAR MD Common Visit Codes: [id number] INP/OBS CARE(HIGH) ANU SPEARS RESIDENT Sep 14, 2024 13:58 LEIGH VILLAR MD Sep 16, 2024 00:16
[2024-09-14 15:37] LABS: Amphetamine Screen, Urine Neg (NEGATIVE)
[2024-09-14 15:38] LABS: Urine Protein, UAD Negative (Negative)
[2024-09-14 15:39] LABS: Barbiturate Scree,Urine Neg (NEGATIVE); Benzodiazephine Screen, Urine Neg (NEGATIVE); Cannabinoid Screen, Urine Pos (NEGATIVE); Cocaine Screen, Urine Neg (NEGATIVE); Opiate Scree,Urine Neg (NEGATIVE); Phencyclidine Screen, Urine Neg (NEGATIVE)
--- NOTE | 2024-09-14 17:26 | DVHSR ---
APPROVED REPORT EXAM: Two-dimensional and M-mode echocardiogram with Doppler and color Doppler. Blood Pressure: 149/97 mmHg INDICATION Chest Pain RISK FACTORS Height: 5'8", Weight: 160 DIMENSIONS LVDd4.4 (3.8-5.7cm)LA (2D)4.3 (1.9-4.0cm)Aortic Root3.4 (2.0-3.7cm) LVDs4.0 (2.5-4.0cm)LA (MM) (1.9-4.0cm)Aortic Cusp Exc1.7 (1.5-2.0cm) EF (%) 23.0 (55-70%)Rt. Atrium3.7 (1.9-4.0cm)Asc. Aorta3.0 cm IVSd1.1 (0.7-1.1cm)RV (D)3.3 (1.8-2.4cm) PWd1.1 (0.7-1.1cm) Mitral Valve MitralMitral Stenosis E wave0.80m/sMV Mean GR.mmHg A wave0.63m/sMV Peak GR.mmHg E/A ratio1.32D MVAcm2 DECEL [id number] 1/2 Timems Aortic Valve Aortic ValveAortic Stenosis V10.81m/Edel Mean GR.2mmHg V21.00m/Edel Peak GR.4mmHg LVOT Diameter2.1 (1.8-2.4cm)Doppler AVA2.80cm2 Pulmonic Valve V20.86m/s Conclusion Technically good study. Sinus rhythm. Biatrial enlargement. Mild LV enlargement. RV outflow tract enlargement. Valves are normal. EF of 25% with global hypokinesis. Mild RV dysfunction. Unremarkable Doppler. Trace TR. No pericardial effusion masses or vegetations.
[2024-09-14] MEDS: TAMSULOSIN HYDROCHLORIDE 0.4 MG CAP PO SCH (18:01)
[2024-09-14] MEDS: ATORVASTATIN 20 MG TAB PO SCH (21:50)
[2024-09-14] MEDS: MAGNESIUM SULFATE 1GM/100ML 100 ML IV ONE (22:50)
[2024-09-15] VITALS (13 sets, daily range): BP systolic 108–148; BP diastolic 76–95; PULSE 56–140; RESP 16–20; TEMP 97.8–98.6; O2SAT 94–99
[2024-09-15 07:20] LABS: Hematocrit 45.7 % (41.0-53.0); Hemoglobin 16.0 g/dL (13.5-17.5); Mean Corpuscular Hemoglobin 30.5 pg (28.0-32.0); Mean Corpuscular Volume 87.3 fL (80.0-100.0); Nucleated Red Blood Cells % 0.1 %
[2024-09-15 07:28] LABS: Anion Gap 11 (5-15); Carbon Dioxide 22 mmol/L (20-31); Potassium 4.2 mmol/L (3.5-5.1); Sodium 141 mmol/L (136-145)
[2024-09-15 07:29] LABS: Calcium 10.1 mg/dL (8.7-10.4)
[2024-09-15 07:31] LABS: Chloride 108 mmol/L (98-107)
[2024-09-15 07:34] LABS: BUN/Creatinine Ratio 8.2 (10.0-20.0); Blood Urea Nitrogen 10 mg/dL (9-23)
[2024-09-15 07:35] LABS: Glucose 123 mg/dL (74-106)
[2024-09-15 07:39] LABS: INR 1.03 (0.9-1.15); Partial Thromboplastin Time 25.9 SEC (24.5-34.5); Prothrombin Time 10.9 sec (9.3-11.8)
[2024-09-15] MEDS: ANGIOMAX 250 MG VIAL IV ONE (16:23)
[2024-09-15] MEDS: fentaNYL CITRATE 100 MCG/2 ML VL ONE (16:23)
[2024-09-15] MEDS: VERAPAMIL 2.5MG/ML INJ 2ML VIAL IV ONE (16:23)
[2024-09-15] MEDS: HEPARIN SODIUM (PORCINE) 5000 UNITS/ML 1ML VIAL ONE (16:23)
[2024-09-15] MEDS: MIDAZOLAM HCL 2MG/2ML 2ml VIAL (1mg/ml) ONE (16:24)
[2024-09-15] MEDS: SODIUM CHL 0.9% 0 ML ONE (16:24)
[2024-09-15] MEDS: LIDOCAINE 2%HCL (LOCAL ANESTH.) INJ 20ML MDV ONE (16:24)
--- NOTE | 2024-09-15 17:24 | DVHOP2 ---
Operative Report - 2 Report Details Date: 09/15/24 Preop Diagnosis: CAD Postop Diagnosis: Moderate CAD Surgeon: Stephen Garrido MD Anesthesiologist: Conscious sedation Anesthesia: Mac, Local Consent: The patient was informed of the risks and benefits of the procedure. These include but are not limited to complications of anesthesia, postoperative infection, incomplete relief of symptoms, recurrence of symptoms, damage to blood vessels, nerves and tendons, deep venous thrombosis, pulmonary embolism and possible need for repeat surgery in the future. Complications: No complications Findings: Moderate CAD Indications for Surgery: Chest pain Name of Procedure Performed Left heart catheterization. Bilateral cine coronary angiography. Left ventric ulography. Fractional flow reserve evaluation of the LAD. Procedure Details Procedure Details: Prior local anesthesia with 2% lidocaine to the right wrist and full informed consent obtained patient was prepped and draped in usual fashion followed by placement of a six Pashto sheath into the radial artery under fluoroscopic guidance. We then placed a Milad catheter to perform RCA evaluation and ventriculography. A EBU four guide was used to perform angiographic evaluation of the left coronary artery. Fractional flow reserve evaluation of the LAD was performed with a catheterization works program without complications Hemodynamics aortic blood pressure: 130/70. End-diastolic pressure was 18. There was no gradient across the aortic valve on pullback Coronary anatomy: The RCA is a large vessel it has mild plaquing in its mid and distal segments. The PDA is within normal limits as is the RCA. The posterolateral branches rather small with a 75-80% proximal stenosis supplying a small segment of myocardium. It does not appear to be amenable to angioplasty. Left main is short but large. The circumflex is large with a mid 50-60% stenosis at the bifurcation of the marginal. Distal segments are free of significant disease. The left anterior descending coronary artery is normal in its proximal portion at the bifurcation of the septal and a diagonal there appears to be a 60-70% stenosis. FFR evaluation at this level shows an FFR at 0.84 suggesting noncritical disease. The mid and distal segments are otherwise free of significant disease however the distal segment is small and has a long 60-70% s tenosis however it does not appear to be impeding flow. Ventriculography in the UGALDE projection shows an EF of about 50% Impression mild CAD as delineated above with mild disease of the LAD circumflex stent placed distal posterolateral branch. Normal end-diastolic pressure normal ejection fraction. Recommendations medical therapy is warranted continue risk factor modification. Condition Good Disposition Still a Patient Date of Service: Sep 15, 2024 Billing Provider: STEPHEN GARRIDO Sr., MD Cardiology Common Codes: [id number] INP/OBS CARE (High) Cardiology Procedure Codes: 12101-XDWD HEART CATH W/INTRA INJ (Fractional flow reserve evaluation of the LAD) STEPHEN GARRIDO Sr., MD Sep 15, 2024 17:24
--- NOTE | 2024-09-15 20:07 | DVHPNRES ---
Progress Note Date Seen: Sep 15, 2024 Resident Creating Document: ANU SPEARS Medical Necessity Reason Pt with a Central, PICC or Fol: No Subjective Review of Systems The patient with Holter monitor presented to the ED yesterday for shortness of breath and lightheadedness. He reports improvement in his symptoms. He denies any other complaints today. Patient reports: Feels better Objective vital signs Vital Sign Date Time Temp Pulse Resp B/P (MAP) Pulse Ox O2 Delivery O2 Flow Rate FiO2 09/15/24 18:24 60 19 148/95 (112) 98 09/15/24 17:25 97.8 97.8 09/15/24 07:59 Room Air* 0 21 Total Intake and Output 09/14/24 09/14/24 09/15/24 15:00 23:00 07:00 Intake Total 425 ml 480 ml Balance 425 ml 480 ml medications Current Medications Medications Dose Ordered Sig/Marga Route Start Time Stop Time Status Last Admin Dose Admin Aspirin 81 mg DAILY PO 09/14/24 10:00 09/15/24 09:07 81 MG Atorvastatin Calcium 10 mg HS PO 09/13/24 22:00 09/14/24 21:46 10 MG Ondansetron HCl 4 mg Q4HP PRN IV 09/13/24 21:00 Acetaminophen 650 mg Q6HP PRN PO 09/13/24 21:00 Nitroglycerin 0.4 mg Q5MINP PRN SL 09/13/24 21:00 Morphine Sulfate 2 mg Q30M PRN IV 09/13/24 21:00 Gabapentin 200 mg BID PO 09/14/24 10:00 09/15/24 09:07 200 MG Tamsulosin HCl 0.4 mg QPM PO 09/14/24 18:00 09/15/24 18:45 0.4 MG Metoprolol Succinate 25 mg DAILY PO 09/14/24 10:00 09/15/24 09:10 25 MG Albuterol 2.5 mg Q6HPRN PRN NEB 09/13/24 23:00 Amlodipine Besylate 5 mg DAILY PO 09/14/24 10:00 09/15/24 09:07 5 MG Atorvastatin Calcium 20 mg HS PO 09/14/24 22:00 09/14/24 21:50 20 MG Losartan Potassium 12.5 mg DAILY PO 09/14/24 10:00 09/15/24 09:08 12.5 MG Examination Pt is lying on bed General Appearance: Dysarthria, mouth deviated towards the left side, Alert, Oriented X3, Cooperative, Mild distress HEENT: Atraumatic, Mucous membranes moist/pink. Left eye vision loss. Respiratory: Clear to auscultation, Normal air movement, No added sounds Cardiovascular: Regular rate, Normal S1, Normal S2, No murmurs Abdominal/ : Active bowel sounds, Soft, no distention, no tenderness Extremities: No edema, Normal pulses, No tenderness/swelling Skin: No Significant rash, except past surgical scars Neuro: Normal speech, sensorimotor deficits none, normal motor strength in upper and lower extremities. Psych/Mental Status: Mental status NL, Mood NL laboratory and microbiology Laboratory Tests 09/15/24 06:33 Test 09/15/24 06:33 Range/Units Serum Glucose 123 H 74-106 mg/dL Labs and/or images reviewed: Labs reviewed by me, Image(s) reviewed by me Problem List/Assessment/Plan Problem List/Assessment/Plan Symptomatic PVC Rule out bradyarrhythmia tachyarrhythmia syndrome CAD -telemetry monitoring -morphine -nitroglycerin -metoprolol -cardiology consult done today. -nonsustained V-tach according to telemetry, - Left heart catheterization. Bilateral cine coronary angiography. Left ventriculography. Fractional flow reserve evaluation of the LAD. showed mild CAD as delineated above with mild disease of the LAD circumflex stent placed distal posterolateral branch. Normal end-diastolic pressure normal ejection fraction. - Recommendations medical therapy is warranted continue risk factor modification. Hyperlipidemia Atorvastatin BPH Tamsulosin Hypertension Losartan GI prophylaxis: Not indicated DVT prophylaxis: SCD Diet: Cardiac Goals of care discussed with the patient for more than 27 minutes: Full code status Case discussed with , patient and RN Plan discussed with: Patient Date of Service: Sep 15, 2024 Billing Provider: LEIGH VILLAR MD Common Visit Codes: [id number] INP/OBS CARE(HIGH) ANU SPEARS RESIDENT Sep 15, 2024 20:07 KEVIN ANGUIANO RESIDENT Sep 15, 2024 20:15 LEIGH VILLAR MD Sep 16, 2024 00:17
--- NOTE | 2024-09-15 20:48 | DVHPN2 ---
Progress Note Date Seen: Sep 15, 2024 Resident Creating Document: QASIM ENRIQUE RESDIENT Medical Necessity Reason Pt with a Central, PICC or Fol: No Subjective Review of Systems Seen and examined at the bedside. Patient is feeling better since admission and 10 out any active complaint including shortness of breaths and dizziness. Patient reports: No new complaints, Feels better Changes from previous H/P or p: Changes Objective vital signs Vital Sign Date Time Temp Pulse Resp B/P (MAP) Pulse Ox O2 Delivery O2 Flow Rate FiO2 09/15/24 18:24 60 19 148/95 (112) 98 09/15/24 17:25 97.8 97.8 09/15/24 07:59 Room Air* 0 21 Total Intake and Output 09/14/24 09/14/24 09/15/24 15:00 23:00 07:00 Intake Total 425 ml 480 ml Balance 425 ml 480 ml medications Current Medications Medications Dose Ordered Sig/Marga Route Start Time Stop Time Status Last Admin Dose Admin Aspirin 81 mg DAILY PO 09/14/24 10:00 09/15/24 09:07 81 MG Atorvastatin Calcium 10 mg HS PO 09/13/24 22:00 09/14/24 21:46 10 MG Ondansetron HCl 4 mg Q4HP PRN IV 09/13/24 21:00 Acetaminophen 650 mg Q6HP PRN PO 09/13/24 21:00 Nitroglycerin 0.4 mg Q5MINP PRN SL 09/13/24 21:00 Morphine Sulfate 2 mg Q30M PRN IV 09/13/24 21:00 Gabapentin 200 mg BID PO 09/14/24 10:00 09/15/24 09:07 200 MG Tamsulosin HCl 0.4 mg QPM PO 09/14/24 18:00 09/15/24 18:45 0.4 MG Metoprolol Succinate 25 mg DAILY PO 09/14/24 10:00 09/15/24 09:10 25 MG Albuterol 2.5 mg Q6HPRN PRN NEB 09/13/24 23:00 Amlodipine Besylate 5 mg DAILY PO 09/14/24 10:00 09/15/24 09:07 5 MG Atorvastatin Calcium 20 mg HS PO 09/14/24 22:00 09/14/24 21:50 20 MG Losartan Potassium 12.5 mg DAILY PO 09/14/24 10:00 09/15/24 09:08 12.5 MG Examination General Appearance: Alert, Oriented X3, Cooperative, No acute distress HEENT: Atraumatic, PERRLA, EOMI, Mucous membrane moist/pink Respiratory: Clear to auscultation, Normal air movement Cardiovascular: Regular rate, Normal S1, Normal S2, No murmurs, no chest wall tenderness Abdominal: Normal bowel sounds, Soft, No tenderness, No hepatospenomegaly, No masses Extremities: No clubbing, No cyanosis, No edema, Normal pulses, No tenderness/swelling Skin: No rashes, No breakdown, No significant lesion Neuro: Normal gait, Normal speech, Strength at 5/5 X4 ext, Normal tone, Sensation intact, Cranial nerves 3-12 NL, Reflexes 2+ Psych/Mental Status: Mental status NL, Mood NL laboratory and microbiology Laboratory Tests 09/15/24 06:33 Test 09/15/24 06:33 Range/Units Serum Glucose 123 H 74-106 mg/dL Labs and/or images reviewed: Image(s) reviewed by me Problem List/Assessment/Plan Problem List/Assessment/Plan Lightheadedness, likely due to ventricular tachycardia Nonsustained ventricular tachycardia Hypertension History of CVA COPD Dyslipidemia * EKGs shows bigeminal PVCs * Telemetry showed multiple episodes of nonsustained ventricular tachycardia * Echo shows dilated cardiomyopathy with EF 25% * BNP and trop I is within normal limit Plan/recommendation (Dr. Garrido) * Left heart catheterization shows, mild disease of the LAD circumflex stent placed distal posterolateral branch. Normal end-diastolic pressure normal ejection fraction. * Amiodarone 200 mg b.i.d. * Rest of plan per primary team * We sign of the patient, follow up with the Cardiology on outpatient basis. Thank you for giving us the opportunity to take care of your patient. Please call back if you have any questions/concerns. Plan discussed with: Patient, Other (RN) My Orders My Orders Orders - QASIM ENRIQUE RESDILALITHA Procedure Category Date Status Time Obtain Consent For: ORDERS 09/14/24 Transmitted 21:54 Hold Enoxaparin Day [facility] 09/15/24 In Process Of Procedu 00:01 D/C Tlc [facility] 09/14/24 In Process 21:54 Shave Both Groins [facility] 09/14/24 In Process 21:54 Provide Education [facility] 09/14/24 In Process Materials 21:54 Cl Left Heart Cath CL 09/15/24 Logged 10:00 Comprehensive LAB 09/16/24 Verified Metabolic Panel 04:00 Obtain Consent For [facility] 09/14/24 In Process Anesthesia 21:54 QASIM ENRIQUE RESLYN Sep 15, 2024 20:48
[2024-09-16] VITALS (8 sets, daily range): BP systolic 120–134; BP diastolic 53–91; PULSE 46–76; RESP 15–18; TEMP 98–99.6; O2SAT 97–100
[2024-09-16] MEDS: AMIODARONE HCL 200 MG TAB PO ONE (00:24)
[2024-09-16 07:11] LABS: Alanine Aminotransferase 10 U/L (7-40); Albumin 4.0 g/dL (3.2-4.8); Alkaline Phosphatase 76 U/L (46-116); Anion Gap 11 (5-15); BUN/Creatinine Ratio 10.9 (10.0-20.0); Blood Urea Nitrogen 15 mg/dL (9-23); Calcium 9.9 mg/dL (8.7-10.4); Carbon Dioxide 22 mmol/L (20-31); Magnesium 2.2 mg/dL (1.6-2.6); Potassium 4.4 mmol/L (3.5-5.1); Sodium 141 mmol/L (136-145); Total Protein 6.4 g/dL (5.7-8.2)
[2024-09-16 07:12] LABS: Bilirubin, Total 1.0 mg/dL (0.2-1.0)
[2024-09-16 07:34] LABS: Chloride 108 mmol/L (98-107); Glucose 110 mg/dL (74-106)
[2024-09-16] MEDS ORDERED: AMIODARONE HCL 200 MG TAB PO SCH ×2 (10:00→22:00)
[2024-09-16 11:01] LABS: Hematocrit 45.7 % (41.0-53.0); Hemoglobin 15.5 g/dL (13.5-17.5); Mean Corpuscular Hemoglobin 30.0 pg (28.0-32.0); Mean Corpuscular Volume 88.4 fL (80.0-100.0); Nucleated Red Blood Cells % 0.2 %
[2024-09-16] MEDS ORDERED: AMIO200T13 PO (11:59)
--- NOTE | 2024-09-16 14:23 | DVHDSRES ---
Discharge Summary Date of Admission Resident Creating Document: ANU SPEARS Sep 13, 2024 at 20:53 Date of Discharge: Sep 16, 2024 Admitting Diagnosis Symptomatic PVCs Labs/Diagnostic Data: Laboratory Results Test 09/16/24 05:43 09/15/24 06:33 09/14/24 14:37 09/14/24 06:19 White Blood Count 6.5 10^3/uL (4.4-10.8) Red Blood Count 5.17 10^6/uL (4.5-5.90) Hemoglobin 15.5 g/dL (13.5-17.5) Hematocrit 45.7 % (41.0-53.0) Mean Corpuscular Volume 88.4 fL (80.0-100.0) Mean Corpuscular Hemoglobin 30.0 pg (28.0-32.0) Mean Corpuscular Hemoglobin Concent 34.0 g/dL (32.0-36.0) Red Cell Distribution Width 13.5 % (11.8-14.3) Platelet Count 228 10^3/uL (140-450) Mean Platelet Volume 8.0 fL (6.9-10.8) Neutrophils (%) (Auto) 51.3 % (37.0-80.0) Lymphocytes (%) (Auto) 29.0 % (10.0-50.0) Monocytes (%) (Auto) 16.1 % (0.0-12.0) Eosinophils (%) (Auto) 2.8 % (0.0-7.0) Basophils (%) (Auto) 0.8 % (0.0-2.0) Neutrophils # (Auto) 3.4 10 ^3/uL (1.6-8.6) Lymphocytes # (Auto) 1.9 10 ^3/uL (0.4-5.4) Monocytes # (Auto) 1.1 10 ^3/uL (0-1.3) Eosinophils # (Auto) 0.2 10 ^3/uL (0-0.8) Basophils # (Auto) 0.1 10 ^3/uL (0-0.2) Nucleated Red Blood Cells 0.2 % Sodium Level 141 mmol/L (136-145) Potassium Level 4.4 mmol/L (3.5-5.1) Chloride Level 108 mmol/L (98-107) Carbon Dioxide Level 22 mmol/L (20-31) Anion Gap 11 (5-15) Blood Urea Nitrogen 15 mg/dL (9-23) Creatinine 1.38 mg/dL (0.700-1.30) Glomerular Filtration Rate Calc 53 mL/min (>90) BUN/Creatinine Ratio 10.9 (10.0-20.0) Serum Glucose 110 mg/dL (74-106) Calcium Level 9.9 mg/dL (8.7-10.4) Magnesium Level 2.2 mg/dL (1.6-2.6) Total Bilirubin 1.0 mg/dL (0.2-1.0) Aspartate Amino Transferase (AST) 15 U/L (13-40) Alanine Aminotransferase (ALT) 10 U/L (7-40) Alkaline Phosphatase 76 U/L (46-116) Total Protein 6.4 g/dL (5.7-8.2) Albumin 4.0 g/dL (3.2-4.8) Prothrombin Time 10.9 sec (9.3-11.8) Prothrombin Time INR 1.03 (0.9-1.15) Activated Partial Thromboplast Time 25.9 SEC (24.5-34.5) Urine Color Yellow (Yellow) Urine Clarity Clear (Clear) Urine pH 7.0 (5.0-9.0) Urine Specific [place] 1.014 (1.001-1.035) Urine Protein Negative (Negative) Urine Ketones Negative (Negative) Urine Blood Negative /uL (Negative) Urine Nitrite Negative (Negative) Urine Bilirubin Negative (Negative) Urine Urobilinogen 2 mg/dL (Negative) Urine Leukocyte Esterase Negative /uL (Negative) Urine RBC 1 /hpf (0 - 3) Urine Microscopic WBC 2 /HPF (0-3) Urine Squamous Epithelial Cells Few /hpf (<5) Urine Bacteria /hpf (None Seen) Urine Glucose Normal mg/dL (Normal) Urine Opiates Screen Neg (NEGATIVE) Urine Fentanyl Screen Neg (NEGATIVE) Urine Barbiturates Screen Neg (NEGATIVE) Urine Phencyclidine Screen Neg (NEGATIVE) Urine Amphetamines Screen Neg (NEGATIVE) Urine Benzodiazepines Screen Neg (NEGATIVE) Urine Cocaine Screen Neg (NEGATIVE) Urine Cannabinoids Screen Pos (NEGATIVE) B-Type Natriuretic Peptide 309.94 pg/mL (0-100) Test 09/13/24 19:18 09/13/24 17:55 09/13/24 17:15 Troponin I High Sensitivity 22 ng/L (</=54) Triglycerides Level 198 mg/dL (< 150) Cholesterol Level 100 mg/dL (< 200) LDL Cholesterol 43 mg/dL (< 100) HDL Cholesterol 33 mg/dL (40-59) Thyroid Stimulating Hormone (TSH) 1.80 uIU/mL (0.55-4.78) POC Glucose 151 mg/dl (70-106) Other Laboratory Tests 09/16/24 05:43 Brief Hx & Hospital Course: The patient was on Holter monitor admitted with shortness of breath and lightheadedness, symptomatic premature ventricular contractions (PVCs) and nonsustained ventricular tachycardia (NSVT), prompting evaluation for underlying arrhythmia and coronary artery disease (CAD). Telemetry monitoring confirmed NSVT, and a cardiology consultation was completed. The patient underwent left heart catheterization, bilateral cine coronary angiography, left ventriculography, and fractional flow reserve evaluation of the left anterior descending artery (LAD), which revealed mild CAD with a stent placed in the distal posterolateral branch of the circumflex artery. End-diastolic pressure and ejection fraction were within normal limits. Medical therapy including amiodarone 200 mg b.i.d. was recommended, and the patient was advised to continue risk factor modification. During hospitalization, the patient also developed acute kidney injury (JESS) attributed to vasomotor nephropathy (VMN), likely secondary to renal hypoperfusion. Management included hemodynamic support with intravenous fluids, discontinuation of nephrotoxic agents, and close monitoring of renal function. Renal function showed signs of stabilization prior to discharge. Additional comorbidities include hyperlipidemia, benign prostatic hyperplasia (BPH), and hypertension. The patient was maintained on atorvastatin for lipid control, tamsulosin for BPH, and losartan for blood pressure management. Beta- renaldo therapy with metoprolol was continued for arrhythmia control. Pain and ischemic symptoms were managed with morphine and nitroglycerin as needed. The patient is stable for discharge with instructions to follow up with cardiology, PCP and nephrology. Continued adherence to prescribed medications and lifestyle modifications is strongly recommended. Pt is lying on bed General Appearance: Dysarthria, mouth deviated towards the left side, Alert, Oriented X3, Cooperative, Mild distress HEENT: Atraumatic, Mucous membranes moist/pink. Left eye vision loss. Respiratory: Clear to auscultation, Normal air movement, No added sounds Cardiovascular: Regular rate, Normal S1, Normal S2, No murmurs Abdominal/ : Active bowel sounds, Soft, no distention, no tenderness Extremities: No edema, Normal pulses, No tenderness/swelling Skin: No Significant rash, except past surgical scars Neuro: Difficulty in speech, sensorimotor deficits none, normal motor strength in upper and lower extremities. Psych/Mental Status: Mental status NL, Mood NL Operations or Procedures Angiography: Impression mild CAD as delineated above with mild disease of the LAD circumflex stent placed distal posterolateral branch. Normal end-diastolic pressure normal ejection fraction. Chest x-ray: No acute disease Condition at Discharge: Stable Final Diagnosis/Problems List Moderate CAD Symptomatic PVC Hypertension BPH Hyperlipidemia Discharge Disposition: Home Discharge Instruct/Medications Diet: Consistent carbohydrate, Cardiac 2g Na,low cholest Activity: No Restrictions, As Tolerated Follow Up/Referral: Outpatient Follow up with PCP and batch tester in 1 week this Medications: As per EMR Scheduled Amiodarone HCl (Amiodarone HCl), 200 MG PO Q12HR Amlodipine Besylate (Amlodipine Besylate), 10 MG PO HS, (Reported) Aspirin Buffered ([place] Carb-Mag (Aspirin 325 mg), 1 TAB PO DAILY, (Reported) Atorvastatin Calcium (Atorvastatin Calcium), 20 MG PO HS, (Reported) Brimonidine Tartrate (Brimonidine Tartrate), 1 DROP EACHEYE BID, (Reported) Buspirone Hcl (Buspirone Hcl), 15 MG PO QAM, (Reported) Cholecalciferol (Kp Vitamin D), 1,000 UNIT PO DAILY, (Reported) Dorzolamide Hcl (Dorzolamide Hcl), 1 DROP EACHEYE BID, (Reported) Gabapentin (Gabapentin), 400 MG PO HS, (Reported) Ipratropium-Albuterol (Ipratropium [place]/Albut), 1 KARLOS IN QID, (Reported) Latanoprost (Latanoprost), 1 DROP EACHEYE QPM, (Reported) Losartan Potassium (Losartan Potassium), 50 MG PO DAILY, (Reported) Metformin Hydrochloride (Metformin Hcl), 500 MG PO DAILY, (Reported) Metoprolol Succinate (Metoprolol Succinate Er), 50 MG PO DAILY, (Reported) Montelukast Sodium (Montelukast Sodium), 10 MG PO QPM, (Reported) Multiple Vitamin (Multivitamins), 1 TAB PO DAILY, (Reported) Timolol Maleate (Timolol Maleate), 1 DROP EACHEYE QAM, (Reported) Scheduled PRN Clonidine Hydrochloride (Clonidine Hcl), 0.1 MG PO BID PRN for SBP >179 OR DBP >109, (Reported) Diazepam (Diazepam), 5 MG PO DAILY PRN for SEVERE ANXOR PANIC ATTACKS, (Reported) Megestrol Acetate (Megace), 40 MG PO Q6HP PRN for LOSS OF APPETITE, (Reported) Trazodone HCl (Trazodone Hydrocloride), 100 MG PO HSPRN PRN for FOR INSOMNIA, (Reported) Discharge Statement: "Patient was advised to return to the ER or call 911 if any headaches, dizziness, shortness of breath, chest pain, abdominal pain, bleeding, fevers, or worsening of medical condition. Patient was counseled about treatment plan, medications, possible side effects, patientverbalized understanding. All questions were answered to the best of my ability. This discharge took greater then 30 minutes in planning, reviewing documentation, counseling the patient, and discussing with other team members." ASSESSMENT ASSESSMENT Assessment Moderate CAD Symptomatic PVC Hypertension BPH Hyperlipidemia Date of Service: Sep 16, 2024 Billing Provider: LEIGH VILLAR MD Common Visit Codes: 53043-UZU/OBS DISCH DAY >30min ANU SPEARS Sep 16, 2024 14:23 LEIGH VILLAR MD Sep 18, 2024 11:05
--- NOTE | 2024-09-19 07:19 | ECG ---
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
== END 2024-09-16 16:35 | disposition home or self-care (01) | DRG 287 ==
LOC: ER 17:00 → OVERFLOW 20:53 → TELE-EAST 22:30
PROVIDERS: ADMIT Internal Medicine; ATTEND Internal Medicine
PROC: 4A023N7 Measurement of Cardiac Sampling and Pressure, Left Heart, Percutaneous Approach (ICD-10-PCS; principal; 2024-09-15)
PROC: B2111ZZ Fluoroscopy of Multiple Coronary Arteries using Low Osmolar Contrast (ICD-10-PCS; 2024-09-15)
PROC: B2151ZZ Fluoroscopy of Left Heart using Low Osmolar Contrast (ICD-10-PCS; 2024-09-15)
PROC: 4A033BC Measurement of Arterial Pressure, Coronary, Percutaneous Approach (ICD-10-PCS; 2024-09-15)
DX: I25.10 Atherosclerotic heart disease of native coronary artery without angina pectoris (principal); E11.22 Type 2 diabetes mellitus with diabetic chronic kidney disease; N18.9 Chronic kidney disease, unspecified; K21.9 Gastro-esophageal reflux disease without esophagitis; F17.210 Nicotine dependence, cigarettes, uncomplicated; I12.9 Hypertensive chronic kidney disease with stage 1 through stage 4 chronic kidney disease, or unspecified chronic kidney disease; I49.3 Ventricular premature depolarization; J44.9 Chronic obstructive pulmonary disease, unspecified; Z86.73 Personal history of transient ischemic attack (TIA), and cerebral infarction without residual deficits
CPT/HCPCS: 36415; 71045; 80048; 80053; 80061; 80307; 81001; 82962; 83735; 83880; 84443; 84484; 85025; 85610; 85730; 86850; 86900; 86901; 93005; 93306; 93458; 99152; G0378; J2250